=== PATIENT | female | born 1995 | race Caucasian/White ===

== ENCOUNTER 2018-04-12 08:47 | Day surgery (SDC) | payer SELFPAY ==
[~2018-04-12 08:47] MED LIST: HYDROCODONE/APAP 5/325 TAB PO SCH
[2018-04-12] MEDS ORDERED: KETOROLAC 30 MG/1 ML SDV IVP ONE (09:01)
[2018-04-12] MEDS ORDERED: PANTOPRAZOLE SODIUM 40 MG VIAL IVP ONE (09:01)
[2018-04-12] MEDS ORDERED: PROMETHAZINE HCL 25 MG/ML INJ IVP ONE (09:01)
[2018-04-12] MEDS ORDERED: NS 1,000 ML IV ONE ×2 (09:01→11:56)
--- NOTE | 2018-04-12 09:01 | EDPHY ---
H & P Stated Complaint: epigastric pain vomiting sob since 2 am Source: Patient, Family, Clinical Transformation Specialist (Nepali) Exam Limitations: Language barrier - Personal History LMP (Females 10-55): 22-28 Days Ago - Medical/Surgical History Hx Asthma: No Hx Chronic Respiratory Disease: No Hx Diabetes: No Hx Cardiac Disease: No Hx Renal Disease: No Hx Cirrhosis: No Hx Alcoholism: No Hx HIV/AIDS: No Hx Splenectomy or Spleen Trauma: No Other PMH: denies - Social History Smoking Status: Never smoked Time Seen by Provider: 04/12/18 08:57 HPI/ROS: HPI: This is a 22-year-old female who presents with Chief Complaint: epigastric pain vomiting sob since 2 am Location: Epigastric Quality: Pain, vomiting Duration: Approximately 7 hr Signs and Symptoms: no fever, + nausea, + vomiting, no hematemesis, no blood in stool, no abdominal bloating, no diarrhea, no back pain, no urinary symptoms, no vaginal bleeding/discharge, no indigestion, + chest pain, no shortness of breath Timing: Acute, intermittent episodes Severity: Moderate Context: Patient is generally healthy, presents with sudden onset around 2:00 a.m. Of epigastric burning discomfort that radiates up into her esophagus accompanied by 5 episodes of vomiting of her stomach contents. She reports that she feels nauseous and actually vomited in the emergency room waiting room prior to being triage. No other family members are sick. Last meal was around 10:00 p.m. No early satiety, indigestion, diarrhea, blood in stool, hematemesis , intolerance to fatty or fried foods. Last menstrual period was March 23. Did drink milk around 6:30 a.m. But vomited it up right away. Modifying Factors: None Comment: ROS: A comprehensive 10 system review of systems is otherwise negative aside from elements mentioned in the history of present illness. MEDICAL/SURGICAL/SOCIAL HISTORY: Medical history: Generally healthy. Does not take any regular medications. Surgical history: Denies Social history: Never smoked. Denies drug and alcohol use. Family history noncontributory. CONSTITUTIONAL: Appears uncomfortable young adult female, awake and alert, no obvious distress HEENT: Atraumatic and normocephalic, PERRL, EOMI. Nares patent; no rhinorrhea; no nasal mucosal edema. Tympanic membranes clear. Oropharynx clear, no exudate and moist pink mucosa. Airway patent. No lymphadenopathy. No meningismus. Cardiovascular: Normal S1/S2, regular rate, regular rhythm, without murmur rub or gallop. PULMONARY/CHEST: Symmetrical and nontender. Clear to auscultation bilaterally. Good air movement. No accessory muscle usage. ABDOMEN: Soft, nondistended, moderate epigastric tenderness, mild right upper quadrant tenderness, no rebound, + guarding, no peritoneal signs, no masses or organomegaly. No CVAT. EXTREMITIES: 2/2 pulses, strength 5/5, no deformities, no clubbing, no cyanosis or edema. NEUROLOGICAL: no focal neuro deficits. GCS 15. SKIN: Warm and dry, no erythema. no rash. Good capillary refill. (Malinda Kaye) Constitutional: Initial Vital Signs Temperature (C) 36.4 C 04/12/18 08:52 Heart Rate 84 04/12/18 08:52 Respiratory Rate 18 04/12/18 08:52 Blood Pressure 100/76 04/12/18 08:52 O2 Sat (%) 100 04/12/18 08:52 O2 Delivery Mode Room Air O2 (L/minute) 2 Allergies/Adverse Reactions: No Known Allergies Allergy (Unverified 04/12/18 08:51) Home Medications: Medication Instructions Recorded Hydrocodone/APAP 5/325 [[place] 1 - 2 tab PO Q4H PRN #15 tab 04/12/18 5/325 (*)] Medical Decision Making ED Course/Re-evaluation: Vital signs reviewed and stable upon arrival. No systemic signs. IV access and laboratory studies obtained along with ultrasound of right upper quadrant to rule out gallbladder disease Patient given 1 L normal saline, IV Toradol 30 mg, IV Protonix 40 mg, IV promethazine 12.5 mg Suspect gastritis versus gallbladder disease 0950: Labs reviewed. WBC 16 K with left shift, potassium 3.4, creatinine 0.4, no elevated LFTs, no pancreatitis 1000: Called by Dr. Liu who reports that ultrasound shows several stones measuring 5 mm with pericholecystic fluid, + Javed sign concerning for cholecystitis. Common bile duct 3 mm. 1015: ED decision to consult General surgery. Spoke with Dr. Andrew Blackburn who kindly agrees to consult on patient and will likely take to the operating room to remove the gallbladder this afternoon. IV Zosyn given per request. This patient was seen under the supervision of my secondary supervising physician. I evaluated care for this patient independently. Discussed this patient with Dr. Parra who did not see the patient. (Malinda Kaye) The patient was evaluated and managed by the physician reproductive healthcare assistant. I have reviewed this chart and I agree with the findings and plan of care as documented , as indicated by my signature. I am the secondary supervising physician. ( Sally Parra) Differential Diagnosis: Abdominal pain including but not limited to appendicitis, cholecystitis, gastritis and urinary tract infection. (Malinda Kaye) - Data Points Laboratory Results: Laboratory Results 04/12/18 09:04 04/12/18 09:04 Medications Given: Discontinued Medications Hydrocodone Bitart/Acetaminophen ([place] 5/325) 2 tab PO Q4HRS PRN PRN Reason: Pain, Moderate Able to Take PO Stop: 04/22/18 17:37 Last Admin: 04/12/18 19:28 Dose: 1 tab Bupivacaine HCl/Epinephrine Bitart (Bupivacaine/Epi) Confirm Administered Dose 30 ml .ROUTE .STK-MED ONE Stop: 04/12/18 15:33 Last Admin: 04/12/18 16:55 Dose: 30 ml Fentanyl (Sublimaze) 25 - 100 mcg IVP Q5M PRN PRN Reason: PACU, IMMEDIATE Pain control Stop: 04/12/18 18:33 Last Admin: 04/12/18 18:28 Dose: 25 mcg Sodium Chloride (Ns) 1,000 mls @ 0 mls/hr IV EDNOW ONE; Wide Open PRN Reason: Protocol Stop: 04/12/18 09:02 Last Admin: 04/12/18 09:13 Dose: 1,000 mls Piperacillin/Tazobactam/Dextrose (Zosyn 3.375 Gm (Premix)) 50 mls @ 100 mls/hr IV EDNOW ONE PRN Reason: Protocol Stop: 04/12/18 10:56 Last Admin: 04/12/18 10:54 Dose: 50 mls Sodium Chloride (Ns) 1,000 mls @ 100 mls/hr IV ONCE ONE PRN Reason: Protocol Stop: 04/12/18 21:55 Last Admin: 04/12/18 12:18 Dose: 1,000 mls Ketorolac Tromethamine (Toradol) 30 mg IVP EDNOW ONE Stop: 04/12/18 09:02 Last Admin: 04/12/18 09:14 Dose: 30 mg Midazolam HCl (Versed) 2 mg IVP ONCALL ONE Stop: 04/12/18 16:36 Last Admin: 04/12/18 16:45 Dose: 2 mg Pantoprazole Sodium (Protonix) 40 mg IVP ONCE ONE Stop: 04/12/18 09:02 Last Admin: 04/12/18 09:13 Dose: 40 mg Promethazine HCl (Phenergan) 12.5 mg IVP EDNOW ONE Stop: 04/12/18 09:02 Last Admin: 04/12/18 09:14 Dose: 12.5 mg Departure - Departure Disposition: To OP Cath/Surgery Clinical Impression: Acute calculous cholecystitis Condition: Good
[2018-04-12 09:18] LABS: PLATELET COUNT 236 10^3/uL (150-400)
[2018-04-12] MEDS ORDERED: PIPERACILLIN/TAZO 3.375 GM/DEX 50 ML IV ONE (10:27)
[2018-04-12] MEDS ORDERED: LR 1,000 ML IV ONE (14:03)
--- NOTE | 2018-04-12 14:33 | GHP ---
DATE OF ADMISSION: 04/12/2018 REASON FOR EVALUATION: Cholecystitis. INDICATIONS: 22-year-old healthy female with a 1-day history of severe progressive right upper quadrant abdominal pain with radiation to bilateral shoulders. No prior history of similar pain. Associated nausea without emesis. Bowel movements without diarrhea. No history of dark urine, acholic stools, or jaundice. Notable history of increasing reflux symptoms over the last month. PAST MEDICAL HISTORY: Denies. PAST SURGICAL HISTORY: Denies. MEDICATIONS: None. ALLERGIES: No known drug allergies. SOCIAL HISTORY: No significant alcohol or tobacco. She is here with her partner. FAMILY HISTORY: Noncontributory. REVIEW OF THE SYSTEMS: Notable for above GI complaints only. PHYSICAL EXAMINATION: VITAL SIGNS: Temperature 36.4, blood pressure 96/62, heart rate 66, respirations 16. GENERAL APPEARANCE: The patient is alert, appropriate, on improved comfort level status post analgesic administration. Anicteric. NECK: No cervical lymphadenopathy. HEART: Regular. LUNGS: Clear. ABDOMEN: Notable for right upper quadrant tenderness without Javed sign. No abdominal hernias. EXTREMITIES: Without edema. SKIN: Without rashes. NEUROLOGIC: Alert and appropriate. LABORATORY DATA: White count 16,000, hemoglobin 15, platelets of 240. Electrolytes: Sodium 138, potassium 3.4, chloride 107, CO2 21, BUN 14, creatinine 0.4, glucose 116. Liver enzymes in reference range. test unremarkable. IMAGING: Right upper quadrant ultrasound images were directly reviewed on PACS. Cholelithiasis with sonographic Javed sign noted by grease maker head and pericholecystic fluid. IMPRESSION: Acute cholecystitis. RECOMMENDATIONS: Laparoscopic cholecystectomy. Risks and benefits were explained to the patient, including but not limited to bleeding, infection, open conversion, bile duct injury, retained stone, potential for postoperative ERCP. All questions were answered. She desires to proceed. /[id number]/MODL MTDD
--- NOTE | 2018-04-12 15:14 | PDANEPAE ---
ANE History of Present Illness 22 yo female with acute cholecystitis. ANE Past Medical History - Cardiovascular History Hx Hypertension: No Hx Arrhythmias: No Hx Chest Pain: No Hx Coronary Artery / Peripheral Vascular Disease: No Hx CHF / Valvular Disease: No Hx Palpitations: No - Pulmonary History Hx COPD: No Hx Asthma/Reactive Airway Disease: No Hx Oxygen in Use at Home: No Hx Sleep Apnea: No - Endocrine History Hx Diabetes: No Hypothyroid: No Hyperthyroid: No Obesity: no - Renal History Hx Renal Disorders: No - Liver History Hx Hepatic Disorders: No - Neurological & Psychiatric Hx Hx Neurological and Psychiatric Disorders: No - GI History GERD: moderate Hx Gastrointestinal Disorders: Yes - Chronic Pain History Chronic Pain: No ANE Review of Systems Review of Systems: - Systems Constitutional: Reports: malaise Gastrointestinal: Reports: abdominal pain ANE Patient History - Allergies Allergies/Adverse Reactions: No Known Allergies Allergy (Unverified 04/12/18 08:51) - Home Medications Home Medications: NK [No Known Home Meds] 04/12/18 [Last Taken Unknown] - NPO status NPO Since - Liquids (Date): 04/12/18 NPO Since - Liquids (Time): 06:30 (milk) NPO Since - Solids (Date): 04/11/18 NPO Since - Solids (Time): 22:30 - Anes Hx Hx Anesthesia Complications (with details): no anesthesia before - Smoking Hx Smoking Status: Never smoked - Family Anes Hx Family Anes Hx: neg - N/A ANE Labs/Vital Signs - Labs Result Diagrams: 04/12/18 09:04 04/12/18 09:04 - Vital Signs Blood Pressure: 94/53 Heart Rate: 72 Respiratory Rate: 16 O2 Sat (%): 97 Height: 162.56 cm Weight: 61.235 kg ANE Physical Exam - Airway Neck exam: FROM Mallampati Score: Class 2 Mouth exam: normal dental/mouth exam - Pulmonary Pulmonary: clear to auscultation - Cardiovascular Cardiovascular: regular rate and rhythym - ASA Status ASA Status: II ANE Anesthesia Plan Anesthesia Plan: general endotracheal anesthesia
[2018-04-12] MEDS ORDERED: BUPIVACAINE/EPI 0.5% 30 ML SDV ONE (15:32)
[2018-04-12] MEDS ORDERED: LIDOCAINE 2% 5 ML SDV ONE (15:39)
[2018-04-12] MEDS ORDERED: ONDANSETRON 4 MG/2 ML VIAL ONE (15:39)
[2018-04-12] MEDS ORDERED: fentaNYL 100 MCG/2 ML INJ ONE ×2 (15:39→18:26)
[2018-04-12] MEDS ORDERED: DEXAMETHASONE 4 MG/ML VIAL ONE (15:39)
[2018-04-12] MEDS ORDERED: ROCURONIUM 50 MG/5 ML VIAL ONE (15:39)
[2018-04-12] MEDS ORDERED: PROPOFOL 200 MG/20 ML VIAL ONE ×2 (15:39→16:54)
[2018-04-12] MEDS ORDERED: SUCCINYLCHOLINE CHLORIDE 200 MG/10 ML SYR IVP ONE (15:39)
[2018-04-12] MEDS ORDERED: KETOROLAC 30 MG/1 ML SDV ONE (15:39)
[2018-04-12] MEDS ORDERED: MIDAZOLAM 2 MG/2 ML VIAL IVP ONE (16:35)
[2018-04-12] MEDS ORDERED: MIDAZOLAM 2 MG/2 ML VIAL ONE (16:36)
[2018-04-12] MEDS ORDERED: SUGAMMADEX SODIUM 200 MG/2 ML VIAL IVP ONE (17:29)
[2018-04-12] MEDS ORDERED: HYDROmorphONE/DILAUDID 2 MG/ML INJ IVP PRN (17:33)
[2018-04-12] MEDS ORDERED: NALOXONE HCL 0.4 MG/ML INJ IVP PRN (17:33)
[2018-04-12] MEDS ORDERED: ONDANSETRON 4 MG/2 ML VIAL IVP PRN (17:33)
[2018-04-12] MEDS ORDERED: fentaNYL 100 MCG/2 ML INJ IVP PRN (17:33)
--- NOTE | 2018-04-12 17:37 | POSTOPPROG ---
Post Op Note Date of Operation: 04/12/18 Surgeon: Andrew Blackburn Pr Internship: Clemencia Obrien Anesthesiologist: Robert Banda Anesthesia: GET(General Endotracheal) Pre-op Diagnosis: Acute cholecystitis Post-op Diagnosis: Same Procedure: Lap choly Findings: acutely inflamed edematous gallbladder Inf/Abcess present in the surg proc area at time of surgery?: Yes Depth: Organ Space EBL: Minimal Specimen(s): gallbladder
[2018-04-12 17:58] VITALS: BP 108/71
--- NOTE | 2018-04-12 18:12 | POSTANESTH ---
Post Anesthetic Evaluation Cardiovascular Status: Normal, Stable Respiratory Status: Normal, Stable Level of Consciousness/Mental Status: Can Participate in Eval Pain Control: Adequate, Prn Tx Ordered Nausea/Vomiting Control: Adequate, Prn Tx Ordered Complications Possibly Related to Anesthesia: None Noted
--- NOTE | 2018-04-12 18:19 | GOP ---
DATE OF OPERATION: 04/12/2018 SURGEON: Andrew Blackburn MD TEST DATA DEVELOPER: Clemencia Obrien PA-C. ANESTHESIA: General. ANESTHESIOLOGIST: Meir Banda MD. PREOPERATIVE DIAGNOSIS: Acute cholecystitis. POSTOPERATIVE DIAGNOSIS: Acute cholecystitis. PROCEDURE PERFORMED: Laparoscopic cholecystectomy. FINDINGS: Edematous gallbladder. INDICATIONS: 22-year-old female with acute cholecystitis. She is undergoing a laparoscopic cholecystectomy at this time. Risks and benefits were explained of bleeding, infection, open conversion, bowel injury, retained stone, potential for postoperative ERCP. All questions were answered. She desires to proceed. DESCRIPTION OF PROCEDURE: General anesthesia was induced. The abdomen was injected with 0.5% Marcaine with epinephrine. A curvilinear infraumbilical incision was created. The midline fascia was opened vertically. A 10 mm trocar was placed under direct visualization. Three additional 5 mm upper abdominal ports were inserted. The gallbladder was acutely inflamed, edematous and hemorrhagic in appearance. The cystic duct and artery circumferentially encompassed confirming the critical view of safety. The duct was multiply clipped and divided with the ultrasonic dissector as was the artery. The gallbladder was peeled from the liver bed fossa with the ultrasonic dissector and brought through the umbilical port site intact using EndoCatch pouch. Satisfactory hemostasis was assured. Trocars were removed under direct visualization. The infraumbilical midline fascia was closed with running Vicryl suture. The wounds were closed with Monocryl suture followed by Dermabond. The patient was taken to the recovery room uneventfully. /[id number]/MODL MTDD
[2018-04-12] MEDS ORDERED: HYDROCODONE/APAP 5/325 TAB ONE ×2 (18:48→19:27)
[2018-04-12] MEDS: HYDROCODONE/APAP 5/325 TAB PO PRN ×2 (18:53→19:28)
== END 2018-04-12 19:38 | disposition home or self-care (01) ==
LOC: UNDOADMOB 11:43 → FSGY 14:13
PROVIDERS: ATTEND Surgery
PROC: 0FT44ZZ Resection of Gallbladder, Percutaneous Endoscopic Approach (ICD-10-PCS; principal; 2018-04-12 17:30)
DX: K80.00 Calculus of gallbladder with acute cholecystitis without obstruction (principal); E86.9 Volume depletion, unspecified
CPT/HCPCS: 96365; J0330; J1100; J1885; J2250; J2405; J2543; J2550; J2704; J3010